=== PATIENT | female | born 1970 | race Caucasian/White ===

== ENCOUNTER 2019-04-20 12:52 | Emergency (ER) | payer MEDICARE, MEDICAID ==
[~2019-04-20] VITALS: Ht 180.3 cm; Wt 149.5 kg
[2019-04-20 13:07] VITALS: Ht 180.3 cm; Wt 149.5 kg
[2019-04-20] MEDS ORDERED: SYNTHROID200 MC1 PO (13:09)
[2019-04-20] MEDS ORDERED: CORTEF10 MG PO (13:09)
[2019-04-20] MEDS ORDERED: IBUPROFEN800 MG PO (13:10)
[2019-04-20] MEDS ORDERED: HYDROCODONE-A1 UDTA2 PO (13:11)
[2019-04-20] MEDS ORDERED: AUGMENTIN 875-11 TAB PO (14:43)
[2019-04-20 15:21] VITALS: BP 134/89
== END 2019-04-20 15:22 | disposition home or self-care (01) ==
LOC: D.ER 12:52
DX: J32.9 Chronic sinusitis, unspecified (principal)